=== PATIENT | male | born 1990 | race Caucasian/White ===

== ENCOUNTER 2025-02-19 08:01 | Emergency (ER) | payer OTHER, SELFPAY ==
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
[2025-02-19 08:12] VITALS: BP 136/85; PULSE 65; RESP 19; TEMP 36.6; O2SAT 98; BMI 33.5
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
[2025-02-19 10:44] VITALS: BP 136/85; PULSE 65; RESP 19; TEMP 36.6; O2SAT 98
== END 2025-02-19 10:44 | disposition home or self-care (01) ==
PROVIDERS: Emergency Provider Emergency Medicine
DX: S13.4XXA Sprain of ligaments of cervical spine, initial encounter (principal); V47.5XXA Car driver injured in collision with fixed or stationary object in traffic accident, initial encounter; R51.9 Headache, unspecified; Y93.89 Activity, other specified; Y92.411 Interstate highway as the place of occurrence of the external cause; Y99.9 Unspecified external cause status
CPT/HCPCS: 70450; 72125; 99282; 99284

== ENCOUNTER → 2025-02-19 09:10 | Outpatient (BNV) | payer SELFPAY | PROVIDERS: PCP Nurse Practitioner Family; Visit Provider Radiology Diagnostic Radiology | DX: M54.2 Cervicalgia (principal); V89.2XXA Person injured in unspecified motor-vehicle accident, traffic, initial encounter; R51.9 Headache, unspecified; R11.0 Nausea; R41.0 Disorientation, unspecified | CPT/HCPCS: 70450; 72125 ==